=== PATIENT | female | born 1935 | race Caucasian/White ===

== ENCOUNTER 2021-04-25 12:19 | Emergency (ER) | payer OTHER, MEDICARE ==
[~2021-04-25] VITALS: Ht 152.4 cm; Wt 47.6 kg
[2021-04-25 12:20] VITALS: BP_SYST 136
--- NOTE | 2021-04-25 12:20 | NUR ---
BROUGHT BACK TO BED #3 AND TRIAGED. REPORT GIVEN TO LEIF
--- NOTE | 2021-04-25 12:43 | NUR ---
ER at bedside examining patient.
--- NOTE | 2021-04-25 13:05 | NUR ---
PT COMES TO ER ALONE VIA WALKER (STEADY GAIT)WITH C.O POSTERIOR NECK PAIN AND OCCIPTAL PAIN WITH MOVEMENT ONLY. DENIES ANY HEADACHES, CHANGES WITH VISION, NO FEVERS/CHILLS. DENIES ANY TRAUMA/FALL. RESP EVEN AND UNLABORED, ON RA@98%. SAFETY PECAUTIONS IN PLACE, WAITING FOR ER MD EVVAL.
--- NOTE | 2021-04-25 13:35 | NUR ---
Pt to radiology dept via leti.
--- NOTE | 2021-04-25 13:47 | NUR ---
Pt back to ER from xray.
[2021-04-25 14:14] LABS: BASOPHILS % (AUTO) 0.5 % (0.0-2.0); EOSINOPHILS % (AUTO) 0.1 % (0.0-4.0); HEMATOCRIT 34.1 % (36-48); HEMOGLOBIN 11.4 g/dL (12.0-16.0); LYMPHOCYTES % (AUTO) 9.8 % (20.5-51.5); MEAN CORPUSCULAR HEMOGLOBIN 31 pg (27-31); MEAN CORPUSCULAR HGB CONC 34 % (32-36); MEAN CORPUSCULAR VOLUME 92 fL (79.0-98.0); MONOCYTES # (AUTO) 1.4 K/uL (0.0-1.0); MONOCYTES % (AUTO) 13.7 % (1.7-9.3); NEUTROPHILS # (AUTO) 7.9 K/uL (1.8-7.7); NEUTROPHILS % (AUTO) 75.9 % (40.0-70.0); PLATELET COUNT (AUTO) 240 K/uL (130-430); RED BLOOD CELL COUNT(AUTO) 3.69 MIL/uL (4.2-6.2); RED CELL DISTRIBUTION WIDTH 14.3 % (9.0-15.0); WHITE BLOOD COUNT (AUTO) 10.4 K/uL (4.8-10.8)
[2021-04-25 14:22] LABS: ANION GAP 10 (5-15); CALCIUM 8.7 mg/dL (8.4-11.0); CHLORIDE 104 mmol/L (98-107); CREATININE 1.53 mg/dL (0.55-1.30); GLUCOSE 95 mg/dL (70-99); POTASSIUM 4.4 mmol/L (3.5-5.1); SODIUM SERUM 137 mmol/L (136-145); UREA NITROGEN, BLOOD 21 mg/dL (8-21)
[2021-04-25 14:27] LABS: ALANINE AMINOTRANSFERASE 19 U/L (12-78); ALBUMIN 3.9 g/dL (3.4-4.8); ASPARTATE AMINOTRANSFERASE 16 U/L (10-37); TOTAL BILIRUBIN 0.5 mg/dL (0.0-1.0)
[2021-04-25] MEDS ORDERED: IBUP-1969 PO (14:59)
[2021-04-25] MEDS ORDERED: HYDR-3917 PO (14:59)
--- NOTE | 2021-04-25 15:20 | NUR ---
DTR EREN ANNE [phone] CALLED, UPDATED ON STATUS. WILL CALL BACK LATER FOR DISPOSITION.
[2021-04-25] MEDS ORDERED: HYDROcodone/ACETAMIN 5-325 MG TAB (NORCO/ VICODIN) PO ONE (16:15)
[2021-04-25] MEDS ORDERED: IBUPROFEN 600 MG TABLET PO ONE (16:15)
--- NOTE | 2021-04-25 16:18 | NUR ---
MEDICATED ORDERED, PT IS CALLING HER HOME FOR [employer] VEHICLE DR[employer].
--- NOTE | 2021-04-25 16:44 | NUR ---
Patient given written and verbal discharge instructions and verbalizes understanding. ER MD discussed with patient the results and treatment provided. Patient in stable condition. ID arm band removed. Rx of NORCO, MOTRIN given. Patient educated on pain management and to follow up with PMD. Pain Scale . Opportunity for questions provided and answered. Medication side effect fact sheet provided.
[2021-04-25 16:45] VITALS: BP_SYST 127
== END 2021-04-25 16:44 | disposition home or self-care (01) ==
LOC: SED 12:19
DX: R51.9 Headache, unspecified (principal); M54.2 Cervicalgia
CPT/HCPCS: 36415; 70450-TC; 72125-TC; 76376; 80053; 85025; 99285